=== PATIENT | female | born 1975 | race Caucasian/White ===

== ENCOUNTER 2017-11-19 20:37 | Emergency (ER) | payer BC ==
[~2017-11-19] VITALS: Ht 167.6 cm; Wt 86.2 kg
[2017-11-19 20:50] VITALS: BP_SYST 145
--- NOTE | 2017-11-19 20:55 | NUR ---
Placed in room 06 . Placed on cardiac cath lab radiology technologist, blood pressure machine and pulse oximeter. To gown for exam. Side rails up. Report given to [place] Neal.
--- NOTE | 2017-11-19 20:55 | NUR ---
ED MD Pruitt at bedside for medical evaluation.
--- NOTE | 2017-11-19 21:00 | NUR ---
Patient ambulatory to ED a/o x 4 with c/o right sided ABD pain radiaiting to right flank and back. Describieds pain as sharp 8/10. +Nausea. Patient recenting seen at urgent care and treated for UTI. Patient started on bactrim. Afebile. ABD non-tender.
[2017-11-19] MEDS: ONDANSETRON 4 MG ODT TAB PO ONE ×2 (21:15→22:06)
[2017-11-19] MEDS ORDERED: KETOROLAC TROMETHAMINE 30 MG VIAL IM ONE (21:45)
[2017-11-19] MEDS ORDERED: IBUPROFEN 800 MG TABLET PO ONE (22:15)
--- NOTE | 2017-11-19 22:15 | NUR ---
ED MD Pruitt at bedside reassessing patient.
[2017-11-19 22:31] VITALS: BP_SYST 131
--- NOTE | 2017-11-19 22:31 | NUR ---
Patient given written and verbal discharge instructions and verbalizes understanding. ER MD discussed with patient the results and treatment provided. Patient in stable condition. ID arm band removed. Rx of flomax, naproxen and norco given. Patient educated on pain management and to follow up with PMD. Pain Scale 3/10 tolerable for patient. Opportunity for questions provided and answered. Medication side effect fact sheet provided.
== END 2017-11-19 22:31 | disposition home or self-care (01) ==
LOC: SED 20:37
DX: K59.00 Constipation, unspecified (principal); N20.0 Calculus of kidney
CPT/HCPCS: 74176; 99284; J1885; Q0162

== ENCOUNTER 2019-08-27 12:56 | Emergency (ER) | payer BC ==
[~2019-08-27] VITALS: Ht 167.6 cm; Wt 111.1 kg
--- NOTE | 2019-08-27 13:00 | NUR ---
Patient to ER bed 07 to gown for evaluation. Side rails up.
[2019-08-27 13:03] VITALS: BP_SYST 180
--- NOTE | 2019-08-27 13:10 | NUR ---
Pt bib to ER with c/o vaginal bleeding since January. Has been seen by OB, s/p D/C. Reports saturating 3-5 pads/hour. Denies any other trauma at this time. V/S stable, pt is afebrile. Resting in bed, will continue to monitor.
--- NOTE | 2019-08-27 13:20 | NUR ---
ER Dr. Spaulding at bedside examining patient.
--- NOTE | 2019-08-27 13:25 | NUR ---
# 22 gauge angiocath placed to right hand. Use of asceptic technique. Opsite placed over site. Blood return noted. Flushed with 10 cc of normal saline. No evidence of infiltration noted. Patient tolerated well.
--- NOTE | 2019-08-27 13:35 | NUR ---
Lab at bedside drawing blood for analysis.
[2019-08-27 13:47] LABS: BASOPHILS % (AUTO) 0.7 % (0.0-2.0); EOSINOPHILS # (AUTO) 0.1 K/uL (0.0-0.4); EOSINOPHILS % (AUTO) 1.8 % (0.0-4.0); HEMATOCRIT 28.7 % (36-48); HEMOGLOBIN 9.5 g/dL (12.0-16.0); LYMPHOCYTES # (AUTO) 1.9 K/uL (1.0-5.5); LYMPHOCYTES % (AUTO) 33.3 % (20.5-51.5); MEAN CORPUSCULAR HEMOGLOBIN 27 pg (27-31); MEAN CORPUSCULAR HGB CONC 33 % (32-36); MEAN CORPUSCULAR VOLUME 83 fL (79.0-98.0); MONOCYTES # (AUTO) 0.3 K/uL (0.0-1.0); MONOCYTES % (AUTO) 5.9 % (1.7-9.3); NEUTROPHILS # (AUTO) 3.3 K/uL (1.8-7.7); NEUTROPHILS % (AUTO) 58.3 % (40.0-70.0); PLATELET COUNT (AUTO) 399 K/uL (130-430); RED BLOOD CELL COUNT(AUTO) 3.45 MIL/uL (4.2-6.2); WHITE BLOOD COUNT (AUTO) 5.6 K/uL (4.8-10.8)
[2019-08-27 14:32] LABS: CALCIUM 8.3 mg/dL (8.4-11.0); CREATININE 0.99 mg/dL (0.55-1.30); POTASSIUM 3.6 mmol/L (3.5-5.1)
[2019-08-27 14:37] LABS: ALBUMIN 3.3 g/dL (3.4-4.8); TOTAL BILIRUBIN 0.2 mg/dL (0.0-1.0)
--- NOTE | 2019-08-27 14:45 | NUR ---
Pelvic exam performed by Dr. Spaulding.
--- NOTE | 2019-08-27 15:55 | NUR ---
Patient given written and verbal discharge instructions and verbalizes understanding. ER MD discussed with patient the results and treatment provided. Patient in stable condition. ID arm band removed. IV catheter removed intact and dressing applied, no active bleeding. Rx of Provera given. Patient educated on pain management and to follow up with PMD. Pain Scale 0. Opportunity for questions provided and answered. Medication side effect fact sheet provided.
[2019-08-27 16:15] VITALS: BP_SYST 151
== END 2019-08-27 15:56 | disposition home or self-care (01) ==
LOC: SED 12:56
DX: N93.8 Other specified abnormal uterine and vaginal bleeding (principal); R42 Dizziness and giddiness
CPT/HCPCS: 36415; 80053; 85025; 86886; 86900; 86901; 99283

== ENCOUNTER 2019-09-03 06:05 | Day surgery (SDC) | payer BC, SELFPAY ==
[2019-09-01 14:33] LABS: BASOPHILS # (AUTO) 0.1 K/uL (0.0-0.2); BASOPHILS % (AUTO) 0.9 % (0.0-2.0); EOSINOPHILS # (AUTO) 0.1 K/uL (0.0-0.4); EOSINOPHILS % (AUTO) 1.4 % (0.0-4.0); HEMATOCRIT 26.7 % (36-48); HEMOGLOBIN 8.4 g/dL (12.0-16.0); LYMPHOCYTES % (AUTO) 31.9 % (20.5-51.5); MEAN CORPUSCULAR HEMOGLOBIN 27 pg (27-31); MEAN CORPUSCULAR HGB CONC 32 % (32-36); MEAN CORPUSCULAR VOLUME 86 fL (79.0-98.0); MONOCYTES # (AUTO) 0.3 K/uL (0.0-1.0); MONOCYTES % (AUTO) 4.9 % (1.7-9.3); NEUTROPHILS # (AUTO) 3.8 K/uL (1.8-7.7); NEUTROPHILS % (AUTO) 60.9 % (40.0-70.0); PLATELET COUNT (AUTO) 456 K/uL (130-430); RED BLOOD CELL COUNT(AUTO) 3.12 MIL/uL (4.2-6.2); RED CELL DISTRIBUTION WIDTH 19.4 % (9.0-15.0); WHITE BLOOD COUNT (AUTO) 6.2 K/uL (4.8-10.8)
[2019-09-01 14:54] LABS: BILIRUBIN,URINE NEGATIVE (NEGATIVE); BLOOD, URINE 3+ (NEGATIVE); CLARITY/URINE CLOUDY (CLEAR); COLOR,URINE YELLOW (YELLOW); GLUCOSE,URINE NEGATIVE (NEGATIVE); KETONES,URINE TRACE (NEGATIVE); LEUKOCYTE ESTERASE ,URINE TRACE (NEGATIVE); NITRITE, URINE NEGATIVE (NEGATIVE); PROTEIN URINE 1+ (NEGATIVE); UROBILINOGEN,URINE 0.2 (0.2-1.0)
[2019-09-01 14:55] LABS: INR 1.1 (0.8-1.2); PROTHROMBIN TIME 10.7 SECS (9.5-12.5)
[2019-09-01 15:01] LABS: ALBUMIN 3.4 g/dL (3.4-4.8); CALCIUM 8.7 mg/dL (8.4-11.0); CREATININE 0.77 mg/dL (0.55-1.30); POTASSIUM 3.8 mmol/L (3.5-5.1); TOTAL BILIRUBIN 0.3 mg/dL (0.0-1.0)
[2019-09-01 15:29] LABS: BACTERIA,URINE MODERATE /HPF (None Seen); RBC,URINE 20-50 /HPF (0-3)
[2019-09-01 15:30] LABS: CALCIUM OXALATE CRYSTALS,UR 0-10 /HPF (None Seen)
[~2019-09-03] VITALS: Ht 167.6 cm; Wt 108.9 kg
[2019-09-03] MEDS ORDERED: D5LR 1,000 ML IV SCH (07:00)
[2019-09-03] MEDS ORDERED: CEFAZOLIN SOD 2 GM in D5W 50 ML IV ONE (07:00)
[2019-09-03] MEDS ORDERED: MORPHINE 4 MG/ML INJ. SYRINGE IVP PRN (07:45)
[2019-09-03] MEDS ORDERED: ONDANSETRON HCL 4 MG/2 ML VIAL IVP PRN ×2 (07:45→09:15)
[2019-09-03] MEDS ORDERED: LR 1,000 ML IV SCH (07:45)
[2019-09-03] MEDS ORDERED: HYDROmorphone 2 MG/ML VIAL IVP PRN (07:45)
[2019-09-03] MEDS ORDERED: ROCURONIUM BROMIDE 10 MG/ML (ZEMURON) ONE (09:06)
[2019-09-03] MEDS ORDERED: SILVER NITRATE APPLICATOR 1 STICK STICK..EA. TP ONE (09:06)
[2019-09-03] MEDS ORDERED: DESFLURANE 15 MIN GAS INH ONE (09:06)
[2019-09-03] MEDS ORDERED: NEOSTIGMINE METHYLSULFATE 1 MG/ML, 10 ML VIAL ONE (09:06)
[2019-09-03] MEDS ORDERED: ONDANSETRON HCL 4 MG/2 ML VIAL ONE (09:06)
[2019-09-03] MEDS ORDERED: PROPOFOL 200MG/ 20ML VIAL (DIPRIVAN) IV ONE (09:06)
[2019-09-03] MEDS ORDERED: NS IRRIG SOLN 5000 ML IR ONE (09:06)
[2019-09-03] MEDS ORDERED: PHENYLEPHRINE HCL 10 MG/ML VIAL (NEOSYNEPHRINE) ONE (09:06)
[2019-09-03] MEDS ORDERED: LR 1,000 ML IV.SOLN IV ONE (09:06)
[2019-09-03] MEDS ORDERED: GLYCOPYRROLATE 0.2 MG/ML VIAL ONE (09:06)
[2019-09-03] MEDS ORDERED: DEXAMETHASONE SOD PHOSPHATE 4 MG/ML VIAL ONE (09:06)
[2019-09-03] MEDS ORDERED: SUCCINYLCHOLINE CHLORIDE 20 MG/ML(QUELICIN) ONE (09:06)
[2019-09-03] MEDS ORDERED: HYDROcodone/ACETAMIN 5-325 MG TAB (NORCO/ VICODIN) PO PRN ×2 (09:15)
[2019-09-03] MEDS ORDERED: IBUPROFEN 800 MG TABLET PO PRN (09:15)
[2019-09-03 10:51] VITALS: BP_SYST 147
== END 2019-09-03 11:30 | disposition home or self-care (01) ==
LOC: SDS 06:05 → SMU 06:05 → SDS 11:30
PROVIDERS: ATTEND Obstetrics & Gynecology Gynecology
DX: N92.0 Excessive and frequent menstruation with regular cycle (principal); D50.9 Iron deficiency anemia, unspecified; F41.9 Anxiety disorder, unspecified; G43.909 Migraine, unspecified, not intractable, without status migrainosus; Z79.01 Long term (current) use of anticoagulants; Z79.899 Other long term (current) drug therapy
CPT/HCPCS: 36415; 71046-TC; 80053; 81000-TC; 84703; 85025; 85610-TC; 85730-TC; 86886; 86900; 86901; 87086; 88305; 88307; 93005; C1819; J0330; J0690; J1100; J2370; J2405; J2704; J2710; J3490; J7060; J7120; U0003-CS